=== PATIENT | female | born 1965 | race Caucasian/White ===

== ENCOUNTER 2021-05-09 10:36 | Inpatient (IN) | payer MEDICARE, MEDICAID ==
[~2021-05-09] VITALS: Ht 162.5 cm; Wt 43.5 kg
[2021-05-09] VITALS (11 sets, daily range): BP systolic 78–106; BP diastolic 44–80
[2021-05-09 11:13] LABS: HEMATOCRIT 38.6 % (37.0-47.0); MEAN CORPUSCULAR HGB 27.2 pg (27.0-31.0); MEAN CORPUSCULAR HGB CONC 29.3 g/dl (33.0-37.0); PLATELET COUNT AUTOMATED 250 10*3/uL (130-400); RED BLOOD COUNT 4.15 10*6/uL (4.10-5.10); RED CELL DISTRI WIDTH 17.7 % (0-14.5); WHITE BLOOD COUNT 16.4 10*3/uL (4.8-10.8)
[2021-05-09 11:23] LABS: ALBUMIN 1.9 gm/dl (3.1-4.5); ALKALINE PHOSPHATASE 193 U/L (45-117); BUN 19 mg/dl (7-24); CHLORIDE 93 mmol/L (98-107); CREATININE 0.16 mg/dL (0.55-1.02); POTASSIUM 4.4 mmol/L (3.5-5.1); SGOT/AST 71 IU/L (3-35); SGPT/ALT 81 U/L (12-78); SODIUM 133 mmol/L (136-145); TOTAL PROTEIN 8.6 gm/dL (6.4-8.2)
[2021-05-09 11:27] LABS: BASOPHILS 1 % (0-1); PLATELET SUFFICIENCY NORMAL (NORMAL); TOTAL CELLS COUNTED 100 #CELLS
[2021-05-09 11:42] LABS: ABG BASE EXCESS 17.9 mmol/L (-2.0-2.0); ARTERIAL BLOOD GAS PH 7.337 (7.35-7.45); ARTERIAL BLOOD GAS PO2 103.2 (80-90)
[2021-05-10] VITALS (25 sets, daily range): BP systolic 98–138; BP diastolic 48–83
[2021-05-10 05:40] LABS: ALBUMIN 1.5 gm/dl (3.1-4.5); BUN 19 mg/dl (7-24); CHLORIDE 101 mmol/L (98-107); CREATININE 0.23 mg/dL (0.55-1.02); SGOT/AST 40 IU/L (3-35); SGPT/ALT 51 U/L (12-78); SODIUM 139 mmol/L (136-145)
[2021-05-10 05:43] LABS: ALKALINE PHOSPHATASE 148 U/L (45-117); CHOLESTEROL 81 mg/dL (<200); LDL CHOLESTEROL 48 mg/dL (9-159); TRIGLYCERIDES 90 mg/dl (<150)
[2021-05-10 05:45] LABS: POTASSIUM 3.1 mmol/L (3.5-5.1)
[2021-05-10 06:25] LABS: BASO % 0.3 % (0.0-1.0); EOS % 0.1 % (1.0-4.0); HEMATOCRIT 31.4 % (37.0-47.0); LYMPH # 0.9 10*3/uL (1.3-4.4); LYMPH % 6.6 % (27.0-41.0); MEAN CORPUSCULAR HGB 27.5 pg (27.0-31.0); MEAN CORPUSCULAR HGB CONC 30.3 g/dl (33.0-37.0); MEAN PLATELET VOLUME 13.3 fl (9.6-12.3); MONO # 0.7 10*3/uL (0.1-1.0); MONO % 5.2 % (3.0-9.0); NEUT # 11.9 10*3/uL (2.3-7.9); NEUT % 87.4 % (47.0-73.0); PLATELET COUNT AUTOMATED 231 10*3/uL (130-400); RED BLOOD COUNT 3.45 10*6/uL (4.10-5.10); RED CELL DISTRI WIDTH 17.9 % (0-14.5); WHITE BLOOD COUNT 13.6 10*3/uL (4.8-10.8)
[2021-05-10 06:26] LABS: ACT PARTIAL THROMBO TIME 41.5 SECONDS (20.0-32.1); INTERNATIONAL NORM RATIO 1.2 (2.0-3.5)
[2021-05-10 08:07] LABS: BILIRUBIN Negative (Negative); BLOOD 3+ (Negative); CLARITY Cloudy (Clear); COLOR Yellow (Yellow); GLUCOSE Negative (Negative); KETONE Negative (Negative); LEUKO ESTERASE Negative (Negative); NITRITE Negative (Negative); UROBILINOGEN 0.2 E.U./dl (0.0-1.0)
[2021-05-10 08:30] LABS: BACTERIA 3+; RBC TNTC rbc/hpf (0-2)
[2021-05-10] MEDS ORDERED: MOM30 M1 PEG (08:31)
[2021-05-10] MEDS ORDERED: TYLENOL325 M3 PEG (08:32)
[2021-05-10] MEDS ORDERED: XANAX0.25 MG PEG (08:35)
[2021-05-10] MEDS ORDERED: Ventolin 02.5 MG/3 M INH (08:36)
[2021-05-10] MEDS ORDERED: TYLENOL PM EX-1 EACH PO (08:37)
[2021-05-10] MEDS ORDERED: ROBINUL PEG (08:38)
[2021-05-10] MEDS ORDERED: PEPCID20 MG PEG (08:38)
[2021-05-10] MEDS ORDERED: NYSTATIN CREAM15 GM T (08:39)
[2021-05-10] MEDS ORDERED: NITROSTAT0.4 MG SL (08:40)
[2021-05-10] MEDS ORDERED: MIDODRINE HCL5 M1 PEG (08:55)
[2021-05-10] MEDS ORDERED: CENTRUM MU9 MG/15 ML PEG (08:56)
[2021-05-10] MEDS ORDERED: SILVADENE,SSD C50 GM T (08:57)
[2021-05-10] MEDS ORDERED: LIDOCAINE5 GM T (08:57)
[2021-05-10] MEDS ORDERED: ZOFRAN4 MG IV (08:59)
[2021-05-10] MEDS ORDERED: ZOLOFT50 MG PEG (09:00)
[2021-05-10] MEDS ORDERED: IMODIUM A-D2 M2 PEG (09:00)
[2021-05-10] MEDS ORDERED: ELIQUIS5 M1 PEG (09:00)
[2021-05-10] MEDS ORDERED: MORPHINE 00.5 MG/13 IV (09:01)
[2021-05-10] MEDS ORDERED: FLORASTOR250 MG PEG (09:02)
[2021-05-10] MEDS ORDERED: K-TAB20 MEQ PEG (09:04)
[2021-05-10] MEDS ORDERED: Lopressor25 MG PEG (09:04)
[2021-05-10] MEDS ORDERED: OXYCODONE5 M1 PEG (09:06)
[2021-05-10] MEDS ORDERED: ATIVAN1 MG PEG (09:06)
[2021-05-11] VITALS: BP 137/59
== END 2021-05-11 00:35 | disposition short-term general hospital (02) | DRG 871 ==
LOC: ED 10:36 → EDHOLD 13:03
PROVIDERS: Student in an Organized Health Care Education/Training Program; ADMIT Internal Medicine; ATTEND Internal Medicine
PROC: 5A1945Z Respiratory Ventilation, 24-96 Consecutive Hours (ICD-10-PCS; principal; 2021-05-09)
PROC: 0BH17EZ Insertion of Endotracheal Airway into Trachea, Via Natural or Artificial Opening (ICD-10-PCS; 2021-05-09)
DX: A41.9 Sepsis, unspecified organism (principal); J80 Acute respiratory distress syndrome; J69.0 Pneumonitis due to inhalation of food and vomit; E43 Unspecified severe protein-calorie malnutrition; E87.1 Hypo-osmolality and hyponatremia; Z20.822 Contact with and (suspected) exposure to COVID-19; D64.9 Anemia, unspecified; E87.8 Other disorders of electrolyte and fluid balance, not elsewhere classified; R73.9 Hyperglycemia, unspecified; R74.01 Elevation of levels of liver transaminase levels; E87.6 Hypokalemia; E83.39 Other disorders of phosphorus metabolism; Z88.8 Allergy status to other drugs, medicaments and biological substances; Z79.1 Long term (current) use of non-steroidal anti-inflammatories (NSAID); Z79.51 Long term (current) use of inhaled steroids; Z79.899 Other long term (current) drug therapy; Z68.29 Body mass index [BMI] 29.0-29.9, adult

== ENCOUNTER 2021-05-30 09:38 | Inpatient (IN) | payer MEDICARE, MEDICAID ==
[2021-05-30] VITALS (15 sets, daily range): BP systolic 64–110; BP diastolic 39–62
[~2021-05-30] VITALS: Ht 162.5 cm; Wt 50.0 kg
[~2021-05-30 09:38] MED LIST: ATIVAN1 MG PEG; CENTRUM MU9 MG/15 ML PEG; ELIQUIS5 M1 PEG; FLORASTOR250 MG PEG; IMODIUM A-D2 M2 PEG; K-TAB20 MEQ PEG; LIDOCAINE5 GM T; Lopressor25 MG PEG; MIDODRINE HCL5 M1 PEG; MOM30 M1 PEG; MORPHINE 00.5 MG/13 IV; NITROSTAT0.4 MG SL; NYSTATIN CREAM15 GM T; OXYCODONE5 M1 PEG; PEPCID AC10 M2 PO; ROBINUL PEG; SILVADENE,SSD C50 GM T; TYLENOL PM EX-1 EACH PO; TYLENOL325 M3 PEG; Ventolin 02.5 MG/3 M INH; XANAX0.5 MG PO; ZOFRAN4 MG IV; ZOLOFT50 MG PEG
[2021-05-30 10:30] LABS: HEMATOCRIT 36.9 % (37.0-47.0); MEAN CELL VOLUME 90.2 fl (81.0-99.0); MEAN CORPUSCULAR HGB 27.6 pg (27.0-31.0); MEAN CORPUSCULAR HGB CONC 30.6 g/dl (33.0-37.0); PLATELET COUNT AUTOMATED 149 10*3/uL (130-400); RED BLOOD COUNT 4.09 10*6/uL (4.10-5.10); RED CELL DISTRI WIDTH 18.2 % (0-14.5); WHITE BLOOD COUNT 33.3 10*3/uL (4.8-10.8)
[2021-05-30 10:41] LABS: ALBUMIN 1.1 gm/dl (3.1-4.5); ALKALINE PHOSPHATASE 252 U/L (45-117); BUN 30 mg/dl (7-24); CHLORIDE 87 mmol/L (98-107); CREATININE 0.33 mg/dL (0.55-1.02); POTASSIUM 5.3 mmol/L (3.5-5.1); SGOT/AST 156 IU/L (3-35); SGPT/ALT 125 U/L (12-78); SODIUM 133 mmol/L (136-145); TOTAL PROTEIN 7.1 gm/dL (6.4-8.2); TROPONIN I 0.027 ng/ml (<0.045)
[2021-05-30 10:54] LABS: PLATELET SUFFICIENCY NORMAL (NORMAL); TARGET CELLS FEW; TOTAL CELLS COUNTED 100 #CELLS; TOXIC GRANULATION SLIGHT; VACUOLATION OF NEUTROPHILS SLIGHT
[2021-05-30 11:26] LABS: BILIRUBIN Negative (Negative); BLOOD 3+ (Negative); CLARITY Cloudy (Clear); COLOR Dark Yellow (Yellow); GLUCOSE Negative (Negative); KETONE Negative (Negative); LEUKO ESTERASE 2+ (Negative); NITRITE Negative (Negative); PH 5.5 (4.5-8.0); SPECIFIC GRAVITY 1.015 (1.001-1.030); UROBILINOGEN 0.2 E.U./dl (0.0-1.0)
[2021-05-30 11:41] LABS: RBC TNTC rbc/hpf (0-2)
[2021-05-30] MEDS ORDERED: DULCOLAX10 M1 R (15:30)
[2021-05-30] MEDS ORDERED: FLEET ENEMA EX230 M1 R (15:32)
[2021-05-30] MEDS ORDERED: LEVOFLOXACIN750 M2 PEG (15:33)
[2021-05-30 19:51] LABS: ABG BASE EXCESS 15.2 mmol/L (-2.0-2.0); ARTERIAL BLOOD GAS PH 7.356 (7.35-7.45)
[2021-05-31] VITALS: BP 81/46
[2021-05-31 04:00] VITALS: BP 110/65
[2021-05-31 05:51] LABS: ALBUMIN 1.1 gm/dl (3.1-4.5); ALKALINE PHOSPHATASE 233 U/L (45-117); BUN 30 mg/dl (7-24); CHLORIDE 94 mmol/L (98-107); SGOT/AST 106 IU/L (3-35); SGPT/ALT 122 U/L (12-78); SODIUM 137 mmol/L (136-145); TOTAL PROTEIN 7.1 gm/dL (6.4-8.2)
[2021-05-31 06:07] LABS: HEMATOCRIT 33.5 % (37.0-47.0); MEAN CELL VOLUME 88.2 fl (81.0-99.0); MEAN CORPUSCULAR HGB 27.4 pg (27.0-31.0); MEAN PLATELET VOLUME 14.1 fl (9.6-12.3); PLATELET COUNT AUTOMATED 202 10*3/uL (130-400); RED CELL DISTRI WIDTH 18.6 % (0-14.5); WHITE BLOOD COUNT 26.5 10*3/uL (4.8-10.8)
[2021-05-31 06:09] LABS: CREATININE < 0.15 mg/dL (0.55-1.02); POTASSIUM 4.3 mmol/L (3.5-5.1)
[2021-05-31 07:08] LABS: TOTAL CELLS COUNTED 100 #CELLS
[2021-05-31 07:09] LABS: PLATELET SUFFICIENCY NORMAL (NORMAL); TARGET CELLS FEW; TOXIC GRANULATION SLIGHT; VACUOLATION OF NEUTROPHILS SLIGHT
[2021-05-31 08:00] VITALS: BP 132/72
[2021-05-31 08:24] LABS: ABG BASE EXCESS 14.2 mmol/L (-2.0-2.0); ARTERIAL BLOOD GAS PH 7.345 (7.35-7.45); ARTERIAL BLOOD GAS PO2 71.7 (80-90)
[2021-05-31 12:00] VITALS: BP 90/71
[2021-05-31 16:00] VITALS: BP 88/49
[2021-05-31 20:00] VITALS: BP 101/64
[2021-06-01] VITALS: BP 83/51
[2021-06-01 04:00] VITALS: BP 90/54
[2021-06-01 05:47] LABS: ALBUMIN 0.9 gm/dl (3.1-4.5); ALKALINE PHOSPHATASE 210 U/L (45-117); BUN 32 mg/dl (7-24); CHLORIDE 98 mmol/L (98-107); POTASSIUM 4.2 mmol/L (3.5-5.1); SGOT/AST 61 IU/L (3-35); SGPT/ALT 87 U/L (12-78); SODIUM 140 mmol/L (136-145); TOTAL PROTEIN 6.3 gm/dL (6.4-8.2)
[2021-06-01 05:49] LABS: CREATININE < 0.15 mg/dL (0.55-1.02)
[2021-06-01 06:11] LABS: HEMATOCRIT 29.9 % (37.0-47.0); MEAN CELL VOLUME 87.7 fl (81.0-99.0); MEAN CORPUSCULAR HGB 27.3 pg (27.0-31.0); MEAN CORPUSCULAR HGB CONC 31.1 g/dl (33.0-37.0); PLATELET COUNT AUTOMATED 158 10*3/uL (130-400); RED BLOOD COUNT 3.41 10*6/uL (4.10-5.10); RED CELL DISTRI WIDTH 18.9 % (0-14.5); WHITE BLOOD COUNT 21.2 10*3/uL (4.8-10.8)
[2021-06-01 07:07] LABS: PLATELET SUFFICIENCY NORMAL (NORMAL); POLYCHROMASIA SLIGHT; TARGET CELLS FEW; TOTAL CELLS COUNTED 100 #CELLS
[2021-06-01 07:08] LABS: ROULEAUX SLIGHT; TOXIC GRANULATION SLIGHT
[2021-06-01 08:00] VITALS: BP 81/39
[2021-06-01 12:00] VITALS: BP 86/43
[2021-06-01 16:05] VITALS: BP 87/49
[2021-06-01 20:00] VITALS: BP 102/57
[2021-06-02] VITALS: BP 92/51
[2021-06-02 04:00] VITALS: BP 100/57
[2021-06-02 08:00] VITALS: BP 114/48
[2021-06-02 10:12] LABS: HEMATOCRIT 30.3 % (37.0-47.0); MEAN CELL VOLUME 88.3 fl (81.0-99.0); MEAN CORPUSCULAR HGB CONC 31.7 g/dl (33.0-37.0); PLATELET COUNT AUTOMATED 165 10*3/uL (130-400); RED BLOOD COUNT 3.43 10*6/uL (4.10-5.10); RED CELL DISTRI WIDTH 19.4 % (0-14.5); WHITE BLOOD COUNT 21.2 10*3/uL (4.8-10.8)
[2021-06-02 10:24] LABS: BUN 31 mg/dl (7-24); CHLORIDE 98 mmol/L (98-107); SODIUM 140 mmol/L (136-145)
[2021-06-02 10:25] LABS: CREATININE < 0.15 mg/dL (0.55-1.02)
[2021-06-02 10:26] LABS: POTASSIUM 4.5 mmol/L (3.5-5.1)
[2021-06-02 10:38] LABS: PLATELET SUFFICIENCY NORMAL (NORMAL); POLYCHROMASIA SLIGHT; TARGET CELLS FEW; TOTAL CELLS COUNTED 100 #CELLS
[2021-06-02 12:00] VITALS: BP 113/47
[2021-06-02 16:00] VITALS: BP 87/54
[2021-06-02 20:00] VITALS: BP 84/47
[2021-06-03] VITALS: BP 90/47
[2021-06-03 04:00] VITALS: BP 85/43
[2021-06-03 05:59] LABS: BUN 32 mg/dl (7-24); CHLORIDE 98 mmol/L (98-107); POTASSIUM 4.2 mmol/L (3.5-5.1); SODIUM 139 mmol/L (136-145)
[2021-06-03 06:09] LABS: CREATININE < 0.15 mg/dL (0.55-1.02)
[2021-06-03 06:11] LABS: BASO % 0.1 % (0.0-1.0); EOS # 0.1 10*3/uL (0.0-0.4); EOS % 0.3 % (1.0-4.0); HEMATOCRIT 26.8 % (37.0-47.0); LYMPH # 1.1 10*3/uL (1.3-4.4); LYMPH % 6.1 % (27.0-41.0); MEAN CELL VOLUME 86.2 fl (81.0-99.0); MEAN CORPUSCULAR HGB 27.7 pg (27.0-31.0); MEAN CORPUSCULAR HGB CONC 32.1 g/dl (33.0-37.0); MONO # 0.7 10*3/uL (0.1-1.0); MONO % 3.7 % (3.0-9.0); NEUT # 15.5 10*3/uL (2.3-7.9); NEUT % 89.3 % (47.0-73.0); NUCLEATED RED BLOOD CELL 0.1 % (0.0-0.0); PLATELET COUNT AUTOMATED 142 10*3/uL (130-400); RED BLOOD COUNT 3.11 10*6/uL (4.10-5.10); RED CELL DISTRI WIDTH 19.3 % (0-14.5); WHITE BLOOD COUNT 17.3 10*3/uL (4.8-10.8)
[2021-06-03 08:00] VITALS: BP 90/52
[2021-06-03 12:00] VITALS: BP 139/84; BP 72/44
[2021-06-03 16:00] VITALS: BP 140/100
[2021-06-03 20:00] VITALS: BP 90/44
[2021-06-04] VITALS (26 sets, daily range): BP systolic 76–145; BP diastolic 36–79
[2021-06-04 06:01] LABS: ALBUMIN 0.9 gm/dl (3.1-4.5); BUN 27 mg/dl (7-24); CHLORIDE 97 mmol/L (98-107); CREATININE 0.16 mg/dL (0.55-1.02); POTASSIUM 3.9 mmol/L (3.5-5.1); SODIUM 139 mmol/L (136-145)
[2021-06-04 06:03] LABS: ALKALINE PHOSPHATASE 292 U/L (45-117); SGOT/AST 124 IU/L (3-35); SGPT/ALT 131 U/L (12-78); TOTAL PROTEIN 6.4 gm/dL (6.4-8.2)
[2021-06-04 06:15] LABS: HEMATOCRIT 28.2 % (37.0-47.0); MEAN CELL VOLUME 85.7 fl (81.0-99.0); MEAN CORPUSCULAR HGB 27.4 pg (27.0-31.0); MEAN CORPUSCULAR HGB CONC 31.9 g/dl (33.0-37.0); PLATELET COUNT AUTOMATED 154 10*3/uL (130-400); RED BLOOD COUNT 3.29 10*6/uL (4.10-5.10); RED CELL DISTRI WIDTH 19.9 % (0-14.5); WHITE BLOOD COUNT 33.9 10*3/uL (4.8-10.8)
[2021-06-04 06:58] LABS: PLATELET SUFFICIENCY NORMAL (NORMAL); POLYCHROMASIA SLIGHT; ROULEAUX SLIGHT; TARGET CELLS MODERATE; TOTAL CELLS COUNTED 100 #CELLS; TOXIC GRANULATION MODERATE
[2021-06-04 06:59] LABS: BURR CELLS FEW
[2021-06-04 11:26] LABS: VENOUS PH 7.525 (7.37-7.45)
[2021-06-05] VITALS (92 sets, daily range): BP systolic 79–120; BP diastolic 34–83
[2021-06-05 05:21] LABS: ALBUMIN 0.8 gm/dl (3.1-4.5); ALKALINE PHOSPHATASE 290 U/L (45-117); BUN 23 mg/dl (7-24); CHLORIDE 97 mmol/L (98-107); POTASSIUM 3.8 mmol/L (3.5-5.1); SGOT/AST 107 IU/L (3-35); SGPT/ALT 124 U/L (12-78); SODIUM 135 mmol/L (136-145); TOTAL PROTEIN 6.2 gm/dL (6.4-8.2)
[2021-06-05 05:22] LABS: CREATININE < 0.15 mg/dL (0.55-1.02)
[2021-06-05 06:26] LABS: HEMATOCRIT 27.6 % (37.0-47.0); MEAN CELL VOLUME 87.1 fl (81.0-99.0); MEAN CORPUSCULAR HGB 27.8 pg (27.0-31.0); MEAN CORPUSCULAR HGB CONC 31.9 g/dl (33.0-37.0); NUCLEATED RED BLOOD CELL 0.1 % (0.0-0.0); PLATELET COUNT AUTOMATED 175 10*3/uL (130-400); RED BLOOD COUNT 3.17 10*6/uL (4.10-5.10); RED CELL DISTRI WIDTH 19.9 % (0-14.5)
[2021-06-05 07:31] LABS: TOTAL CELLS COUNTED 100 #CELLS
[2021-06-05 07:32] LABS: PLATELET SUFFICIENCY NORMAL (NORMAL); POLYCHROMASIA SLIGHT; ROULEAUX MODERATE; TARGET CELLS MODERATE; TOXIC GRANULATION SLIGHT
[2021-06-05 14:51] LABS: BILIRUBIN Negative (Negative); BLOOD 3+ (Negative); CLARITY Cloudy (Clear); COLOR Dark Yellow (Yellow); GLUCOSE Negative (Negative); KETONE Negative (Negative); LEUKO ESTERASE 2+ (Negative); NITRITE Negative (Negative); SPECIFIC GRAVITY 1.015 (1.001-1.030); UROBILINOGEN 0.2 E.U./dl (0.0-1.0)
[2021-06-05 15:19] LABS: BACTERIA 4+; RBC TNTC rbc/hpf (0-2); WBC TNTC wbc/hpf (0-5); YEAST 1+
[2021-06-06] VITALS (86 sets, daily range): BP systolic 82–122; BP diastolic 37–78
[2021-06-06 06:11] LABS: BASO % 0.1 % (0.0-1.0); EOS # 0.3 10*3/uL (0.0-0.4); EOS % 1.5 % (1.0-4.0); HEMATOCRIT 27.3 % (37.0-47.0); LYMPH # 1.1 10*3/uL (1.3-4.4); LYMPH % 5.5 % (27.0-41.0); MEAN CELL VOLUME 88.9 fl (81.0-99.0); MEAN CORPUSCULAR HGB CONC 31.5 g/dl (33.0-37.0); MONO # 0.6 10*3/uL (0.1-1.0); MONO % 3.1 % (3.0-9.0); NEUT # 18.4 10*3/uL (2.3-7.9); PLATELET COUNT AUTOMATED 153 10*3/uL (130-400); RED BLOOD COUNT 3.07 10*6/uL (4.10-5.10); RED CELL DISTRI WIDTH 20.1 % (0-14.5); WHITE BLOOD COUNT 20.7 10*3/uL (4.8-10.8)
[2021-06-06 06:12] LABS: ALBUMIN 0.8 gm/dl (3.1-4.5); ALKALINE PHOSPHATASE 274 U/L (45-117); BUN 16 mg/dl (7-24); CHLORIDE 95 mmol/L (98-107); SGOT/AST 112 IU/L (3-35); SGPT/ALT 122 U/L (12-78); SODIUM 135 mmol/L (136-145); TOTAL PROTEIN 6.2 gm/dL (6.4-8.2)
[2021-06-06 06:18] LABS: CREATININE < 0.15 mg/dL (0.55-1.02)
[2021-06-07] VITALS (11 sets, daily range): BP systolic 87–115; BP diastolic 42–66
[2021-06-07 05:59] LABS: ALBUMIN 0.7 gm/dl (3.1-4.5); ALKALINE PHOSPHATASE 268 U/L (45-117); BUN 18 mg/dl (7-24); CHLORIDE 93 mmol/L (98-107); POTASSIUM 4.3 mmol/L (3.5-5.1); SGOT/AST 118 IU/L (3-35); SGPT/ALT 117 U/L (12-78); SODIUM 134 mmol/L (136-145)
[2021-06-07 06:00] LABS: CREATININE < 0.15 mg/dL (0.55-1.02)
[2021-06-07 06:21] LABS: HEMATOCRIT 25.6 % (37.0-47.0); MEAN CELL VOLUME 88.6 fl (81.0-99.0); MEAN CORPUSCULAR HGB CONC 31.6 g/dl (33.0-37.0); PLATELET COUNT AUTOMATED 142 10*3/uL (130-400); RED BLOOD COUNT 2.89 10*6/uL (4.10-5.10); RED CELL DISTRI WIDTH 20.6 % (0-14.5); WHITE BLOOD COUNT 18.7 10*3/uL (4.8-10.8)
[2021-06-07 08:02] LABS: PLATELET SUFFICIENCY NORMAL (NORMAL); POLYCHROMASIA SLIGHT; TOTAL CELLS COUNTED 100 #CELLS
[2021-06-07 08:03] LABS: TARGET CELLS MODERATE; TOXIC GRANULATION SLIGHT; VACUOLATION OF NEUTROPHILS SLIGHT
[2021-06-08] VITALS (7 sets, daily range): BP systolic 87–109; BP diastolic 39–89
[2021-06-08 04:50] LABS: HEMATOCRIT 30.1 % (37.0-47.0); MEAN CELL VOLUME 90.4 fl (81.0-99.0); MEAN CORPUSCULAR HGB 27.3 pg (27.0-31.0); MEAN CORPUSCULAR HGB CONC 30.2 g/dl (33.0-37.0); MEAN PLATELET VOLUME 13.2 fl (9.6-12.3); RED BLOOD COUNT 3.33 10*6/uL (4.10-5.10); RED CELL DISTRI WIDTH 21.5 % (0-14.5); WHITE BLOOD COUNT 21.6 10*3/uL (4.8-10.8)
[2021-06-08 04:52] LABS: PLATELET COUNT AUTOMATED 198 10*3/uL (130-400)
[2021-06-08 05:04] LABS: ALBUMIN 0.9 gm/dl (3.1-4.5); ALKALINE PHOSPHATASE 323 U/L (45-117); BUN 14 mg/dl (7-24); CHLORIDE 96 mmol/L (98-107); POTASSIUM 4.9 mmol/L (3.5-5.1); SGOT/AST 126 IU/L (3-35); SGPT/ALT 134 U/L (12-78); SODIUM 134 mmol/L (136-145); TOTAL PROTEIN 6.8 gm/dL (6.4-8.2)
[2021-06-08 05:05] LABS: CREATININE < 0.15 mg/dL (0.55-1.02)
[2021-06-08 06:20] LABS: PLATELET SUFFICIENCY NORMAL (NORMAL); TARGET CELLS MODERATE; TOTAL CELLS COUNTED 100 #CELLS; TOXIC GRANULATION SLIGHT; VACUOLATION OF NEUTROPHILS SLIGHT
[2021-06-08 06:21] LABS: POLYCHROMASIA SLIGHT; ROULEAUX MODERATE
[2021-06-08 14:56] LABS: ABG BASE EXCESS 18.4 mmol/L (-2.0-2.0); ARTERIAL BLOOD GAS PH 7.339 (7.35-7.45); ARTERIAL BLOOD GAS PO2 61.7 (80-90)
[2021-06-09] VITALS: BP 106/61
[2021-06-09 04:00] VITALS: BP 110/66
[2021-06-09 06:41] LABS: ALBUMIN 0.8 gm/dl (3.1-4.5); ALKALINE PHOSPHATASE 317 U/L (45-117); BUN 19 mg/dl (7-24); CHLORIDE 97 mmol/L (98-107); SGOT/AST 114 IU/L (3-35); SGPT/ALT 136 U/L (12-78); SODIUM 136 mmol/L (136-145); TOTAL PROTEIN 7.1 gm/dL (6.4-8.2)
[2021-06-09 06:49] LABS: HEMATOCRIT 30.3 % (37.0-47.0); MEAN CORPUSCULAR HGB CONC 29.7 g/dl (33.0-37.0); MEAN PLATELET VOLUME 13.7 fl (9.6-12.3); PLATELET COUNT AUTOMATED 247 10*3/uL (130-400); RED BLOOD COUNT 3.21 10*6/uL (4.10-5.10); RED CELL DISTRI WIDTH 21.4 % (0-14.5); WHITE BLOOD COUNT 25.9 10*3/uL (4.8-10.8)
[2021-06-09 06:51] LABS: MEAN CELL VOLUME 94.4 fl (81.0-99.0)
[2021-06-09 07:13] LABS: CREATININE < 0.15 mg/dL (0.55-1.02)
[2021-06-09 07:34] LABS: POLYCHROMASIA SLIGHT; ROULEAUX SLIGHT; TARGET CELLS MODERATE; TOTAL CELLS COUNTED 100 #CELLS
[2021-06-09 07:35] LABS: PLATELET SUFFICIENCY NORMAL (NORMAL); TOXIC GRANULATION SLIGHT; VACUOLATION OF NEUTROPHILS SLIGHT
[2021-06-09 08:00] VITALS: BP 115/66
[2021-06-09 12:00] VITALS: BP 114/54
[2021-06-09 16:00] VITALS: BP 91/38
[2021-06-09 20:00] VITALS: BP 105/67
[2021-06-10] VITALS: BP 103/59
[2021-06-10 04:00] VITALS: BP 101/68
[2021-06-10 05:39] LABS: ALBUMIN 0.7 gm/dl (3.1-4.5); ALKALINE PHOSPHATASE 266 U/L (45-117); BUN 20 mg/dl (7-24); CHLORIDE 96 mmol/L (98-107); POTASSIUM 4.8 mmol/L (3.5-5.1); SGOT/AST 88 IU/L (3-35); SGPT/ALT 105 U/L (12-78); SODIUM 137 mmol/L (136-145); TOTAL PROTEIN 6.6 gm/dL (6.4-8.2)
[2021-06-10 06:15] LABS: CREATININE < 0.15 mg/dL (0.55-1.02)
[2021-06-10 06:21] LABS: BASO % 0.2 % (0.0-1.0); EOS # 0.1 10*3/uL (0.0-0.4); EOS % 0.4 % (1.0-4.0); HEMATOCRIT 27.2 % (37.0-47.0); LYMPH % 4.6 % (27.0-41.0); MEAN CELL VOLUME 92.5 fl (81.0-99.0); MEAN CORPUSCULAR HGB 27.6 pg (27.0-31.0); MEAN CORPUSCULAR HGB CONC 29.8 g/dl (33.0-37.0); MEAN PLATELET VOLUME 14.1 fl (9.6-12.3); MONO % 4.9 % (3.0-9.0); NEUT # 18.3 10*3/uL (2.3-7.9); NEUT % 89.3 % (47.0-73.0); PLATELET COUNT AUTOMATED 209 10*3/uL (130-400); RED BLOOD COUNT 2.94 10*6/uL (4.10-5.10); RED CELL DISTRI WIDTH 21.9 % (0-14.5); WHITE BLOOD COUNT 20.5 10*3/uL (4.8-10.8)
[2021-06-10 08:00] VITALS: BP 104/62
[2021-06-10 12:00] VITALS: BP 93/60
[2021-06-10 16:00] VITALS: BP 107/50
[2021-06-10 20:00] VITALS: BP 120/67
[2021-06-11] VITALS: BP 93/41
[2021-06-11 04:00] VITALS: BP 116/54
[2021-06-11 05:59] LABS: ALBUMIN 0.8 gm/dl (3.1-4.5); ALKALINE PHOSPHATASE 302 U/L (45-117); BUN 23 mg/dl (7-24); CHLORIDE 93 mmol/L (98-107); POTASSIUM 4.6 mmol/L (3.5-5.1); SGOT/AST 106 IU/L (3-35); SGPT/ALT 122 U/L (12-78); SODIUM 137 mmol/L (136-145); TOTAL PROTEIN 6.8 gm/dL (6.4-8.2)
[2021-06-11 06:02] LABS: CREATININE < 0.15 mg/dL (0.55-1.02)
[2021-06-11 06:21] LABS: BASO % 0.2 % (0.0-1.0); EOS # 0.1 10*3/uL (0.0-0.4); EOS % 0.2 % (1.0-4.0); HEMATOCRIT 27.3 % (37.0-47.0); LYMPH # 1.1 10*3/uL (1.3-4.4); MEAN CELL VOLUME 93.2 fl (81.0-99.0); MEAN PLATELET VOLUME 13.9 fl (9.6-12.3); MONO # 1.1 10*3/uL (0.1-1.0); MONO % 5.2 % (3.0-9.0); NEUT # 19.2 10*3/uL (2.3-7.9); NEUT % 88.9 % (47.0-73.0); NUCLEATED RED BLOOD CELL 0.1 % (0.0-0.0); PLATELET COUNT AUTOMATED 233 10*3/uL (130-400); RED BLOOD COUNT 2.93 10*6/uL (4.10-5.10); RED CELL DISTRI WIDTH 22.4 % (0-14.5); WHITE BLOOD COUNT 21.6 10*3/uL (4.8-10.8)
[2021-06-11 08:00] VITALS: BP 124/74
[2021-06-11 12:00] VITALS: BP 103/57
[2021-06-11 15:07] LABS: ACID FAST SPEC PROCESSING Direct Inoculation (.)
[2021-06-11 16:00] VITALS: BP 101/53
[2021-06-11 20:00] VITALS: BP 122/69
[2021-06-12] VITALS: BP 100/57
[2021-06-12 04:00] VITALS: BP 101/61
[2021-06-12 08:00] VITALS: BP 114/61
[2021-06-12 08:36] LABS: HEMATOCRIT 25.5 % (37.0-47.0); MEAN CORPUSCULAR HGB 28.2 pg (27.0-31.0); MEAN PLATELET VOLUME 13.5 fl (9.6-12.3); NUCLEATED RED BLOOD CELL 0.1 % (0.0-0.0); PLATELET COUNT AUTOMATED 198 10*3/uL (130-400); RED BLOOD COUNT 2.62 10*6/uL (4.10-5.10); RED CELL DISTRI WIDTH 22.3 % (0-14.5); WHITE BLOOD COUNT 15.2 10*3/uL (4.8-10.8)
[2021-06-12 08:41] LABS: MEAN CELL VOLUME 97.3 fl (81.0-99.0)
[2021-06-12 08:49] LABS: ALBUMIN 0.7 gm/dl (3.1-4.5); ALKALINE PHOSPHATASE 246 U/L (45-117); BUN 22 mg/dl (7-24); CHLORIDE 96 mmol/L (98-107); POTASSIUM 4.4 mmol/L (3.5-5.1); SGOT/AST 74 IU/L (3-35); SGPT/ALT 94 U/L (12-78); SODIUM 140 mmol/L (136-145); TOTAL PROTEIN 6.6 gm/dL (6.4-8.2)
[2021-06-12 09:02] LABS: PLATELET SUFFICIENCY NORMAL (NORMAL); TARGET CELLS FEW; TOTAL CELLS COUNTED 100 #CELLS
[2021-06-12 09:03] LABS: POLYCHROMASIA SLIGHT; VACUOLATION OF NEUTROPHILS SLIGHT
[2021-06-12 09:04] LABS: CREATININE < 0.15 mg/dL (0.55-1.02)
[2021-06-12 12:00] VITALS: BP 102/43
[2021-06-12 16:00] VITALS: BP 105/52
[2021-06-12 20:00] VITALS: BP 98/45
[2021-06-13] VITALS: BP 92/51
[2021-06-13 04:00] VITALS: BP 86/45
[2021-06-13 08:00] VITALS: BP 98/46
[2021-06-13 12:00] VITALS: BP 95/49
[2021-06-13 16:00] VITALS: BP 93/42
== END 2021-06-13 18:23 | DRG 870 ==
LOC: ED 09:38 → ICCU 13:42 → EDHOLD 13:42 → ICCU 14:19
PROVIDERS: Emergency Medicine; Family Medicine; Hospitalist; Internal Medicine; Internal Medicine Critical Care Medicine; Student in an Organized Health Care Education/Training Program; ADMIT Internal Medicine; ATTEND Internal Medicine
PROC: 5A1955Z Respiratory Ventilation, Greater than 96 Consecutive Hours (ICD-10-PCS; principal; 2021-05-30)
PROC: 0B928ZZ Drainage of Carina, Via Natural or Artificial Opening Endoscopic (ICD-10-PCS; 2021-06-10)
PROC: 0B948ZZ Drainage of Right Upper Lobe Bronchus, Via Natural or Artificial Opening Endoscopic (ICD-10-PCS; 2021-06-10)
PROC: 0B988ZZ Drainage of Left Upper Lobe Bronchus, Via Natural or Artificial Opening Endoscopic (ICD-10-PCS; 2021-06-10)
PROC: 0B918ZZ Drainage of Trachea, Via Natural or Artificial Opening Endoscopic (ICD-10-PCS; 2021-06-10)
PROC: 0B938ZZ Drainage of Right Main Bronchus, Via Natural or Artificial Opening Endoscopic (ICD-10-PCS; 2021-06-10)
PROC: 0B978ZZ Drainage of Left Main Bronchus, Via Natural or Artificial Opening Endoscopic (ICD-10-PCS; 2021-06-10)
PROC: 0B968ZZ Drainage of Right Lower Lobe Bronchus, Via Natural or Artificial Opening Endoscopic (ICD-10-PCS; 2021-06-10)
PROC: 0B9B8ZZ Drainage of Left Lower Lobe Bronchus, Via Natural or Artificial Opening Endoscopic (ICD-10-PCS; 2021-06-10)
PROC: 0B998ZZ Drainage of Lingula Bronchus, Via Natural or Artificial Opening Endoscopic (ICD-10-PCS; 2021-06-10)
DX: A41.9 Sepsis, unspecified organism (principal); J18.9 Pneumonia, unspecified organism; E43 Unspecified severe protein-calorie malnutrition; R65.21 Severe sepsis with septic shock; G93.41 Metabolic encephalopathy; J80 Acute respiratory distress syndrome; E87.1 Hypo-osmolality and hyponatremia; G12.21 Amyotrophic lateral sclerosis; E87.2 Acidosis; R18.8 Other ascites; B37.49 Other urogenital candidiasis; E87.3 Alkalosis; Z68.1 Body mass index [BMI] 19.9 or less, adult; Z66 Do not resuscitate; R74.01 Elevation of levels of liver transaminase levels; E87.8 Other disorders of electrolyte and fluid balance, not elsewhere classified; I25.10 Atherosclerotic heart disease of native coronary artery without angina pectoris; Z20.822 Contact with and (suspected) exposure to COVID-19; E86.0 Dehydration; G90.8 Other disorders of autonomic nervous system; D64.9 Anemia, unspecified; R73.9 Hyperglycemia, unspecified; Z51.5 Encounter for palliative care; Z93.0 Tracheostomy status; Z88.8 Allergy status to other drugs, medicaments and biological substances; Z86.73 Personal history of transient ischemic attack (TIA), and cerebral infarction without residual deficits; Z79.2 Long term (current) use of antibiotics; Z79.899 Other long term (current) drug therapy; Z79.01 Long term (current) use of anticoagulants